=== PATIENT | male | born 1995 | race Caucasian/White ===

== ENCOUNTER 2022-08-08 08:30 | Emergency (ER) | payer BC, SELFPAY ==
--- NOTE | 2022-08-08 08:34 | ED.GENADULT ---
HPI - General Adult General Chief complaint: Upper Respiratory Symptoms Stated complaint: SORE THROAT W/DIFF BREATHING PER EMS Time Seen by Provider: 08/08/22 08:33 Source: patient Mode of arrival: ambulatory Limitations: no limitations History of Present Illness HPI narrative: Patient is a 27 year old assigned male at with no reported medical history presenting to the emergency department today with a sore throat and swollen uvula. Patient states that he noticed in the shower this morning that his uvula was swollen and he coughed so hard he coughed up blood. Patient denies any dizziness, lightheadedness, abdominal pain, nausea, vomiting, fever, chills, blurry vision, double vision, loss of vision, chest pain, difficulty breathing, shortness of breath, back pain, night sweats, pain with urination, increased urinary frequency, increased urinary urgency, blood in his urine or stool, syncope or a near syncopal episode, recent trauma or falls, bowel incontinence, bladder incontinence, bowel retention, bladder retention, or any other complaints at this time. Onset (ago): hour(s) (1) Location: mouth (uvula) Radiation: non-radiation Severity: mild Severity scale (1-10): 2 Pain Consistency: constant Associated symptoms: denies other symptoms Treatments prior to arrival: none Related Data Allergies Allergy/AdvReac Type Severity Reaction Status Date / Time SEASONAL ALLERGIES Allergy Unknown STUFFY Uncoded 01/23/20 16:34 NOSE, SNEEZING Review of Systems Review of Systems: Yes all other systems are reviewed and are negative Constitutional: Constitutional: Reports no additional constitutional complaints, Denies chills, Denies fever(s) and Denies night sweats Eyes: Eyes: Reports no additional eye complaints, Denies blurry vision, Denies change in vision, Denies diplopia, Denies eye discharge, Denies loss of vision and Denies eye pain ENT: Denies dizziness and Reports sore throat Cardiovascular: Cardiovascular: Reports no additional cardiovascular complaints, Denies chest pain, Denies lightheadedness, Denies Loss of Consciousness and Denies dyspnea Respiratory: Respiratory: Reports no additional respiratory complaints, Reports cough and Denies dyspnea Gastrointestinal: Gastrointestinal: Reports no additional gastrointestinal complaints, Denies abdominal pain, Denies melena, Denies hematochezia, Denies change in bowel habits and Denies change in stool character Genitourinary: Genitourinary: Reports no additional male genitourinary complaints, Denies hematuria, Denies oliguria, Denies difficulty urinating, Denies dysuria, Denies urinary frequency, Denies urinary hesitancy, Denies urinary incontinence and Denies urinary urgency Musculoskeletal: Musculoskeletal: Reports no additional musculoskeletal complaints, Denies numbness and Denies tingling Neurologic: Denies dizziness, Denies loss of vision, Denies numbness and Denies tingling Psychiatric: Psychiatric: Reports no additional psychiatric complaints Endocrine: Endocrine: Reports no additional endocrine complaints Hematologic/Lymphatic: Hematologic/Lymphatic: Reports no additional hematologic/lymphatic complaints Allergic/Immunologic: Allergic/Immunologic: Reports no additional allergic/immunologic complaints [facility] Past Medical History Attestation statement: The following information was validated with the patient. Source: old records reviewed and nursing notes reviewed Social History Social History Advance Directives: No Advance Directives Information Provided: Yes Physical Exam ED Vital Signs: Vital Signs - 24 hr 08/08/22 08:43 Temperature 97.9 F Pulse Rate 69 Respiratory Rate 18 Blood Pressure 145/94 H Pulse Oximetry 98 BMI result Body Mass Index 24.6 Const General: cooperative, healthy appearing, no acute distress, alert and awake Nutritional Appearance: well nourished Orientation/consciousness: patient oriented x3 Limitations: no limitations HENMT Head: Yes normal to inspection and Yes atraumatic Ears: external ears normal and TM's normal bilaterally General nose exam: Normal external nose present Face and sinus: Yes normal facial exam, No abrasion and No laceration Mouth: other (Enlarged uvula extending to borders of tonsils bilaterally) Eyes General: appearance normal, both eyes and all related structures Periorbital: periorbital findings normal Eyelids: Yes eyelids normal Conjunctivae: conjunctivae normal Pupils: Equal, round and reactive pupils present EOM: EOMs intact bilaterally Neck Neck: Yes no lymphadenopathy Chest Chest palpation & inspection: normal inspection of the chest Resp Effort & Inspection: normal respiratory effort and able to speak in complete sentences Auscultation: clear to auscultation bilaterally Cardio Rate: regular rate Rhythm: regular rhythm GI Inspection: Yes normal to inspection Neuro General: patient oriented x3 and moves all extremities Cranial nerves: Yes Equal, round and reactive pupils present Cognition (Neuro): normal cognition Motor exam (neuro): 5/5 motor strength present throughout Sensory Exam: Normal double simultaneous stimulation for sensation Coordination: [id number] test normal Extrem General: Yes normal to inspection, Yes full ROM and Yes capillary refill normal Psych Appearance: grossly normal Mental Status: mental status grossly normal Affect: normal affect Attitude: cooperative Thought process: Normal thought process present Thought content: Normal thought content present Insight: Good insight present (Psych) Medications Administered Discontinued Medications Generic Name Dose Route Start Last Admin Trade Name Joeyq PRN Reason Stop Dose Admin Dexamethasone Sodium Phosphate 10 mg 08/08/22 09:40 08/08/22 09:56 Dexamethasone Sod Phosphate 10 Mg/Ml Vial PO 08/08/22 09:41 10 mg ONCE ONE Administration Medical Decision Making Medical Decision Making [facility] Narrative: Patient is a 27 year old assigned male at with no reported medical history presenting to the emergency department today with a swollen uvula. Patient's physical exam showed a swollen uvula but was otherwise unremarkable. Patient's COVID/Influenza/and strep swabs were negative. I explained my physical exam findings as well as all test results to the patient. I answered all questions asked by the patient. Patient received PO Decadron which he stated helped his symptoms significantly. I stressed the importance of the patient taking his medication as prescribed. I stressed the importance of the patient following up with his primary care provider. I stressed the importance of the patient returning to the emergency department immediately if his symptoms were to worsen or if he were to develop any dizziness, shortness of breath, difficulty breathing, chest pain, blurry vision, loss of vision, nausea, vomiting, abdominal pain, fever, chills, back pain, or any other complaints. Patient verbalized agreement and understanding with this treatment plan and discharge. Differential Diagnosis Differential Diagnoses: The differential diagnosis associated with the presentation includes uvulitis, mononucleosis, streptococcal pharyngitis, pharyngitis Lab Data [facility] Lab Attestation statement: I reviewed the patient's lab results. Labs: Lab Results 08/08/22 08/08/22 08/08/22 Range/Units 08:47 08:47 08:47 COVID-19 (RUDY) Negative (Negative) COVID-19 Clin Com See Note Influenza Type A (WU) Negative (Negative) Influenza Type B (WU) Negative (Negative) Influenza A & B Note See Note S. pyogenes GrpA WU Negative (Negative) Discharge Plan Discharge Clinical Impression: Pharyngitis Patient Disposition: Home, Self-Care Instructions: Pharyngitis (ED) Additional Instructions: Follow up with your primary care provider. Return to the emergency department immediately if your symptoms worsen or if you develop any dizziness, shortness of breath, difficulty breathing, chest pain, blurry vision, loss of vision, nausea, vomiting, abdominal pain, fever, chills, back pain, or any other complaints. Referrals: [facility] Family Medicine [Provider Group] (Call to establish and follow up with a primary care provider. If you already have a primary care provider, please follow up with them.) [facility] Primary CareSandra [Provider Group] (Call to establish and follow up with a primary care provider. If you already have a primary care provider, please follow up with them.) [facility] Primary CareTommie [Provider Group] (Call to establish and follow up with a primary care provider. If you already have a primary care provider, please follow up with them.) Stand Alone Forms: Work/School Release Interventions: ED Discharge Assessment Last Done: 08/08/22 10:13 Discharge Date/Time: 08/08/22 10:13 Print Language: Kyrgyz
[2022-08-08 08:43] VITALS: BP 145/94; PULSE 69; RESP 18; TEMP 36.6; O2SAT 98; BMI 24.6
[2022-08-08 09:04] LABS: IDNOW Serial# 08D9AD1C
[2022-08-08 09:05] LABS: Strep A Nucleic Acid Negative (Negative)
[2022-08-08 09:09] LABS: IDNOW Serial# BCCEAD1C; Influenza A Negative (Negative); Influenza B2 Negative (Negative)
[2022-08-08 09:10] LABS: COVID-19 Test Negative (Negative); IDNOW Serial# 9DB6401D
--- OUTSIDE RECORDS SUMMARY | 2022-08-08 09:12 | XMS_ITS | Continuity of Care Document ---
Author Name Unknown Organization [facility] Michael Seth lt Address [address] [place] [address]- Care Team Providers Care Environmental Conflict Manager Name Role Phone Poonam Olmedo NP Primary Care Physician [phone] [facility]counter [facility] Date(s): 07/01/19 - 07/11/19 [facility] Adult [address] [place] [address]- [facility] Attending Physician: Admtr, Ar8 Admitting Physician: Admtr, Ngoc Referring Physician: Admtr, Ar8 Allergies, Adverse Reactions, Alerts Substance Reaction Severity Status Cats Active Other Environmental Allergy SEASONAL Active Immunizations Given and Recorded Vaccine Date Status Refusal Reason Meningococcal Conjugate Vaccine 12/02/18 Recorded Meningococcal Conjugate Vaccine 08/29/13 Recorded Meningococcal Conjugate Vaccine 04/08/08 Recorded tetanus/diphtheria/pertussis, acel(Tdap) 10/06/16 Recorded Human Papillomavirus Vaccine 02/14/12 Recorded Human Papillomavirus Vaccine 09/13/11 Recorded Human Papillomavirus Vaccine 07/14/11 Recorded Varicella Virus Vaccine 04/08/08 Recorded Varicella Virus Vaccine 03/26/98 Recorded tetanus-diphtheria toxoids (Td) 02/05/07 Recorded Measles/Mumps/Rubella Virus Vaccine 03/26/01 Recor ded Measles/Mumps/Rubella Virus Vaccine 06/25/98 Recor ded diphtheria/tetanus/pertussis, acel(DTaP) 03/26/01 Recorded diphtheria/tetanus/pertussis, acel(DTaP) 06/25/98 Recorded diphtheria/tetanus/pertussis, acel(DTaP) 97 Recorded diphtheria/tetanus/pertussis, acel(DTaP) 97 Recorded diphtheria/tetanus/pertussis, acel(DTaP) 97 Recorded Hepatitis B Vaccine (old term) 97 Recorded Hepatitis B Vaccine (old term) 97 Recorded Hepatitis B Vaccine (old term) 97 Recorded Not Given Vaccine Date Status Refusal Reason Influenza Virus Vaccine (oldterm) 07/01/19 Not Giv en Parent Or Guardian Refuses Medications No Home Meds Maintenance, 11/29/10 13:36:37 Start Date: 11/29/10 Status: Ordered Problem List Condition Effective Dates Status Health Status Inform ant Allergic rhinitis(Confirmed) Active Atypical chest pain(Confirmed) Active GE reflux(Confirmed) Active Hx of scoliosis(Confirmed) Active Osteoarthritis(Confirmed) Active Subcutaneous nodules(Confirmed) Active Social History Social History Type Response Smoking Status Never (less than 100 in lifetime) entered on: 04/27/18 Sex
--- OUTSIDE RECORDS SUMMARY | 2022-08-08 09:12 | XMS_ITS | Continuity of Care Document ---
Author Name Unknown Organization [facility] Brett Rodriguez Seth lt Address [address] [place] [address]- Care Team Providers Care Machine Rope Maker Name Role Phone Merritt Ordoñez MD Primary Care Physician [facility] Date(s): 04/16/21 - 05/16/21 [facility] Adult [address] [place] [address]- Attending Physician: Admtr, Ar8 Admitting Physician: Admtr, Ar8 Referring Physician: Admtr, Ar8 Allergies, Adverse Reactions, Alerts Substance Reaction Severity Status Cats Active Other Environmental Allergy SEASONAL Active Immunizations Given and Recorded Vaccine Date Status Refusal Reason SARS-CoV-2 (COVID-19) mRNA-1273 vaccine 09/04/20 R ecorded SARS-CoV-2 (COVID-19) mRNA-1273 vaccine 08/07/20 R ecorded Meningococcal Conjugate Vaccine 12/02/18 Recorded Meningococcal Conjugate Vaccine 08/29/13 Recorded Meningococcal Conjugate Vaccine 04/08/08 Recorded meningococcal group B vaccine 12/02/18 Recorded tetanus/diphtheria/pertussis, acel(Tdap) 10/06/16 Recorded influenza virus vaccine, inactivated 04/15/15 Ramírez rded Human Papillomavirus Vaccine 02/14/12 Recorded Human Papillomavirus [...]
--- OUTSIDE RECORDS SUMMARY | 2022-08-08 09:12 | XMS_ITS | Continuity of Care Document ---
Author Name Unknown Organization [facility] Seth lt Address [address] [place] [address]- Care Team Providers Care Animal Control Supervisor Name Role Phone Sung LUKE, Lucy Isaacs Primary Care Physician [facility]counter [facility] Date(s): 01/04/22 - 01/11/22 [facility] Adult [address] [place] [address]- Encounter Diagnosis Subcutaneous mass(Discharge Diagnosis) - 01/04/22 Attending Physician: Eric Ceron MD Referring Physician: Lucy Almaraz NP Allergies, Adverse Reactions, Alerts Substance Reaction Severity Status Cats Active Other Environmental Allergy SEASONAL Active Immunizations Given and Recorded Vaccine Date Status Refusal Reason SARS-CoV-2 (COVID-19) mRNA-1273 vaccine 05/16/21 R ecorded SARS-CoV-2 (COVID-19) mRNA-1273 vaccine 09/04/20 R ecorded [...] scoliosis(Confirmed) Active Osteoarthritis(Confirmed) Active Subcutaneous nodules(Confirmed) Active Diagnosis Diagnosis Type Effective Dates Health Status Clinical Service Informant Subcutaneous mass Discharge Diagnosis 01/04/22 Vital Signs Most recent to oldest [Reference Range]: 1 Height 194.3 cm (01/04/22 9:09 AM) Weight 97.5 kg (01/04/22 9:09 AM) Oxygen Saturation [94-100 %] 99 % (01/04/22 9:09 AM) Pulse Rate [55-90 bpm] 59 bpm (01/04/22 9:09 AM) Body Mass Index [18.5-24.99] 25.83 *H* (01/04/22 9:09 AM) Blood Pressure [90-138/55-84 mm Hg] 130/ 60mm Hg (01/04/22 9:09 AM) Temperature [96.8-100.4 DegF] 98.6 DegF (01/04/22 9:09 AM) Temperature Route Temporal (01/04/22 9:09 AM) Weight Obtained Via Standing scale (01/04/22 9:09 AM) Social History Social History Type Response Smoking Status Never (less than 100 in lifetime) entered on: 04/27/18 Sex Care Team Personnel Name: Lucy Almaraz NP Address: [address] [place] [address] Adult [place] [address]-
--- OUTSIDE RECORDS SUMMARY | 2022-08-08 09:12 | XMS_ITS | Continuity of Care Document ---
Author Name Unknown Organization [facility] Michael Seth lt Address [address] [place] [address]- Care Team Providers Care Agricultural Services Director Name Role Phone Merritt Ordoñez MD Primary Care Physician [facility]counter [facility] Date(s): 04/19/21 - 05/19/21 [facility] Adult [address] [place] [address]- Allergies, Adverse Reactions, Alerts Substance Reaction Severity [...]
--- OUTSIDE RECORDS SUMMARY | 2022-08-08 09:12 | XMS_ITS | Continuity of Care Document ---
Author Name Unknown Organization [facility] Address [address] [facility], [address] [place] [address]- Care Team Providers Care Edge Runner Name Role Phone Poonam Olmedo NP Primary Care Physician Encounter 07/04/19 - 10/25/19 [facility] [address], [address] [address]- [phone] Attending Physician: Poonam Olmedo NP Admitting Physician: Poonam Olmedo NP Referring Physician: Poonam Olmedo NP Allergies, Adverse Reactions, Alerts Substance Reaction [...]
--- OUTSIDE RECORDS SUMMARY | 2022-08-08 09:12 | XMS_ITS | Continuity of Care Document ---
Author Name Unknown Organization [facility] Seth lt Address [address] [place] [address]- Care Team Providers Care Tool And Production Planner Name Role Phone Sung LUKE, Lucy Isaacs Primary Care Physician [phone] Encounter [facility] Date(s): 01/04/22 - 02/03/22 [facility] Adult [address] [place] [address]- Attending Physician: AdmNgoc alonzo Admitting Physician: AdmtrNgoc Referring Physician: Admtr, Ar8 Allergies, Adverse Reactions, [...] Date: 11/29/10 Status: Ordered Problem List Condition Confirmation Course Effective Dates Status H ealth Status Informant Allergic rhinitis Confirmed Active Atypical chest pain Confirmed Active GE reflux Confirmed Active Hx of scoliosis Confirmed Active Osteoarthritis Confirmed Active Subcutaneous nodules Confirmed Active Social History Social History Type Response Smoking Status Never (less than 100 in lifetime) entered on: 04/27/18 Sex Patient Care team information Personnel Name: Lucy Almaraz NP Address: Address: [address] [place] [id number]
--- OUTSIDE RECORDS SUMMARY | 2022-08-08 09:12 | XMS_ITS | Continuity of Care Document ---
Author Name Unknown Organization [facility] Address [address] [facility], [address] [place] [address]- Care Team Providers Care Formal Wear Rental Clerk Name Role Phone Poonam Olmedo NP Primary Care Physician Encounter 11/05/19 - 11/12/19 [facility] [address], [facility] [address] [place] [address]- [phone] Attending Physician: Poonam Olmedo NP Admitting Physician: [...]
--- OUTSIDE RECORDS SUMMARY | 2022-08-08 09:12 | XMS_ITS | Continuity of Care Document ---
Author Name Unknown Organization [facility] Brett Rodriguez Seth lt Address [address] [place] [address]- Care Team Providers Care Functional Skills Tutor Name Role Phone Merritt Ordoñez MD Primary Care Physician [phone] [facility]counter [facility] Date(s): 04/16/21 - 04/23/21 [facility] Adult [address] [place] [address]- Encounter Diagnosis Subcutaneous mass of back(Discharge Diagnosis) - 04/16/21 Attending Physician: Merritt Ordoñez MD Allergies, Adverse Reactions, Alerts Substance Reaction Severity [...] Health Status Clinical Service Informant Subcutaneous mass of back Discharge Diagnosis 04/16/21 Vital Signs Most recent to oldest [Reference Range]: 1 Height 194.3 cm (04/16/21 8:29 AM) Weight 99.3 kg (04/16/21 8:29 AM) Oxygen Saturation [94-100 %] 99 % (04/16/21 8:29 AM) Pulse Rate [55-90 bpm] 56 bpm (04/16/21 8:29 AM) Body Mass Index [18.5-24.99] 26.3 *H* (04/16/21 8:29 AM) Blood Pressure [90-138/55-84 mm Hg] 125/ 67mm Hg (04/16/21 8:29 AM) Temperature [96.8-100.4 DegF] 97.9 DegF (04/16/21 8:29 AM) Mode of Delivery (Oxygen) Room air (04/16/21 8:29 AM) Blood pressure sites Arm, left (04/16/21 8:29 AM) Temperature Route Oral (04/16/21 8:29 AM) Social History Social History Type Response Smoking Status Never (less than 100 in lifetime) entered on: 04/27/18 Sex
--- OUTSIDE RECORDS SUMMARY | 2022-08-08 09:12 | XMS_ITS | Continuity of Care Document ---
Author Name Unknown Organization [facility] Seth lt Address [address] [place] [address]- Care Team Providers Care Press Box Custodian Name Role Phone Poonam Olmedo NP Primary Care Physician Encounter [facility] Date(s): 07/01/19 - 07/08/19 [facility] Adult [address] [place] [address]- [facility] Encounter Diagnosis Well adult exam(Discharge Diagnosis) - 07/01/19 GE reflux(Discharge Diagnosis) - 07/01/19 Osteoarthritis(Discharge Diagnosis) - 07/01/19 Subcutaneous nodules(Discharge Diagnosis) - 07/01/19 Attending Physician: Not on Staff, Attending MD Allergies, Adverse Reactions, Alerts Substance Reaction [...] Effective Dates Health Status Clinical Service Informant Well adult exam Discharge Diagnosis 07/01/19 GE reflux Discharge Diagnosis 07/01/19 Osteoarthritis Discharge Diagnosis 07/01/19 Subcutaneous nodules Discharge Diagnosis 07/01/19 Procedures Procedure Date Related Diagnosis Body Site Status Extraction of wisdom tooth Completed Vital Signs Most recent to oldest [Reference Range]: 1 Height 194.3 cm (07/01/19 8:05 AM) Weight 94.6 kg (07/01/19 8:05 AM) Oxygen Saturation [94-100 %] 98 % (07/01/19 8:05 AM) Pulse Rate [55-90 bpm] 73 bpm (07/01/19 8:05 AM) Body Mass Index [18.5-24.99] 25.06 *H* (07/01/19 8:05 AM) Blood Pressure [90-138/55-84 mm Hg] 116/ 66mm Hg (07/01/19 8:05 AM) Respiratory Rate [16-30 br/min] 16 br/mi n (07/01/19 8:05 AM) Temperature [96.8-100.4 DegF] 98.4 DegF (07/01/19 8:05 AM) Mode of Delivery (Oxygen) Room air (07/01/19 8:05 AM) Blood pressure sites Arm, right (07/01/19 8:05 AM) Temperature Route Oral (07/01/19 8:05 AM) Weight Obtained Via Standing scale (07/01/19 8:05 AM) Social History Social History Type Response Smoking Status Never (less than 100 in lifetime) entered on: 04/27/18 Sex
--- OUTSIDE RECORDS SUMMARY | 2022-08-08 09:12 | XMS_ITS | Continuity of Care Document ---
Author Name Unknown Organization [facility] Michael Seth lt Address [address] [place] [address]- Care Team Providers Care Manufacturing Automation Engineer Name Role Phone Merritt Ordoñez MD Primary Care Physician [phone] [facility]counter [facility] Date(s): 05/05/21 - 06/04/21 [facility] Adult [address] [place] [address]- Allergies, Adverse Reactions, Alerts Substance Reaction Severity [...]
[2022-08-08] MEDS: dexAMETHasone sod phosphate 10 MG/ML VIAL PO (09:56)
== END 2022-08-08 10:13 | disposition home or self-care (01) ==
PROVIDERS: Physician Assistant Medical; Emergency Provider Emergency Medicine
DX: J02.8 Acute pharyngitis due to other specified organisms (principal); R06.02 Shortness of breath; Z20.822 Contact with and (suspected) exposure to COVID-19; Z20.828 Contact with and (suspected) exposure to other viral communicable diseases
CPT/HCPCS: 87502; 87635; 87651; 99282; 99283; J1100